=== PATIENT | female | born 1985 | race Caucasian/White ===

== ENCOUNTER → 2016-06-24 | Outpatient (CLI) | payer SELFPAY ==
[~2016-06-24] MED LIST: NORG1TAB12 PO; OMEP-122 PO; ONDA4TAB7 PO; SULF1TAB3 PO
--- NOTE | 2016-06-24 12:01 | DI ---
INDICATION: ITS.REASON: K21.9 GASTRO-ESOPHAGEAL REFLUX; R07.82 INTERCOSTAL PAIN PROCEDURE: CHEST 2-VIEWS UPRIGHT (PA \T\ LAT) Encounter: Initial COMPARISON: July 07, 2014 FINDINGS: The lungs are clear without evidence of focal abnormal airspace opacity. There is no pleural effusion or pneumothorax. The heart size, mediastinal contours and pulmonary vascularity are within normal limits. There is no significant skeletal abnormality. IMPRESSION: No acute cardiopulmonary disease. .
== END ==
LOC: IMA 11:13
PROVIDERS: ATTEND Internal Medicine
DX: K21.9 Gastro-esophageal reflux disease without esophagitis (principal); R07.82 Intercostal pain